=== PATIENT | female | born 1950 | race Hispanic/Latino ===

== ENCOUNTER 2018-02-09 08:11 | Emergency (ER) | payer OTHER, MEDICARE ==
[2018-02-09 08:30] LABS: BASOPHILS % (AUTO) 0.5 % (0.0-5.0); EOSINOPHILS % (AUTO) 5.2 % (0.0-8.0); HEMATOCRIT 37.6 % (36-48); LYMPHOCYTES % (AUTO) 37.9 % (21.0-51.0); MEAN CORPUSCULAR HEMOGLOBIN 29.5 pg (27.0-33.0); MEAN CORPUSCULAR HGB CONC 33.6 g/dL (32.0-36.0); MEAN CORPUSCULAR VOLUME 87.7 fL (79-99); MONOCYTES % (AUTO) 7.4 % (3.0-13.0); PLATELET COUNT (AUTO) 208 K/uL (130-400); RED BLOOD CELL COUNT(AUTO) 4.29 MIL/uL (4.00-5.50); RED CELL DISTRIBUTION WIDTH 13.6 % (11.0-15.5); WHITE BLOOD COUNT (AUTO) 6.4 K/uL (4.8-10.8)
[2018-02-09 08:40] LABS: CREATININE 0.7 mg/dL (0.5-1.5)
[2018-02-09 08:42] LABS: INR 0.97 (0.85-1.15); PARTIAL THROMBOPLASTIN TIME 25.7 SEC (26.3-35.5); PROTHROMBIN TIME 10.2 SEC (9.6-11.6)
[2018-02-09 08:46] LABS: ALBUMIN 3.5 g/dL (3.5-5.0); BILIRUBIN,TOTAL 0.4 mg/dL (0.2-1.0)
[2018-02-09 09:14] LABS: APPEARANCE,URINE Clear (CLEAR); BILIRUBIN,URINE Negative (NEGATIVE); COLOR,URINE Yellow (YELLOW); GLUCOSE, URINE (UA) Negative (NEGATIVE); KETONES,URINE Negative (NEGATIVE); LEUKOCYTE ESTERASE ,URINE Trace (NEGATIVE); NITRATE,URINE Negative (NEGATIVE); OCCULT BLOOD,URINE Negative (NEGATIVE); PH,URINE 5.5 (5.0-8.0); PROTEIN,URINE Negative (NEGATIVE); UROBILINOGEN,URINE 0.2 mg/dL (0.2-1.0)
[2018-02-09 09:22] LABS: AMPHET/METH SCREEN,URINE NEGATIVE (NEGATIVE); BARBITURATE SCREEN, URINE NEGATIVE (NEGATIVE); BENZODIAZEPINES SCREEN,URINE NEGATIVE (NEGATIVE); CANNABINOID SCREEN,URINE NEGATIVE (NEGATIVE); COCAINE SCREEN,URINE NEGATIVE (NEGATIVE); OPIATE SCREEN,URINE NEGATIVE (NEGATIVE); PHENCYCLIDINE SCREEN,URINE NEGATIVE (NEGATIVE)
[2018-02-09] MEDS ORDERED: ACETAMINOPHEN 325 MG TAB ONE (09:52)
[2018-02-09] MEDS ORDERED: MECLIZINE HCL 25 MG TABLET ONE (09:58)
[2018-02-09 10:07] LABS: BACTERIA,URINE Rare /HPF (None Seen); RBC,URINE None Seen /HPF (0-1); SQUAMOUS EPITHELIAL CELL,UR Rare /HPF (0-2); WBC,URINE 0-1 /HPF (0-1)
== END 2018-02-09 11:48 | disposition home or self-care (01) ==
LOC: EDH 08:11
DX: I10 Essential (primary) hypertension (principal); R51 Headache; R42 Dizziness and giddiness; R07.9 Chest pain, unspecified; E78.5 Hyperlipidemia, unspecified; F41.9 Anxiety disorder, unspecified
CPT/HCPCS: 36415; 70450; 71045; 80053; 80305; 81001; 82550; 84484 ×2; 85025; 85610; 85730; 93005 ×2; 99284; G0480

== ENCOUNTER 2019-12-01 16:58 | Inpatient (IN) | payer OTHER, MEDICARE ==
[~2019-12-01] VITALS: Ht 167.6 cm; Wt 89.4 kg
[2019-12-01] MEDS ORDERED: CLINDAMYCIN 600 MG/D5% WATER 50 ML IV ONE (18:11)
[2019-12-01] MEDS ORDERED: LEVOFLOXACIN 750 MG/D5W 150 ML 150 ML ONE (18:11)
[2019-12-01] MEDS ORDERED: SODIUM CHLORIDE 0.9% 1000ML 1,000 ML IV ONE (18:13)
[2019-12-01 18:44] LABS: BASOPHILS % (AUTO) 0.6 % (0.0-5.0); EOSINOPHILS % (AUTO) 1.3 % (0.0-8.0); HEMATOCRIT 29.1 % (36-48); LYMPHOCYTES % (AUTO) 18.9 % (21.0-51.0); MEAN CORPUSCULAR HGB CONC 29.9 g/dL (32.0-36.0); MEAN CORPUSCULAR VOLUME 83.6 fL (79-99); MONOCYTES % (AUTO) 7.5 % (3.0-13.0); NEUTROPHILS % (AUTO) 70.9 % (40.0-77.0); PLATELET COUNT (AUTO) 476 K/uL (130-400); RED BLOOD CELL COUNT(AUTO) 3.48 MIL/uL (4.00-5.50); RED CELL DISTRIBUTION WIDTH 18.7 % (11.0-15.5); WHITE BLOOD COUNT (AUTO) 10.7 K/uL (4.8-10.8)
[2019-12-01 18:59] LABS: CREATININE 0.7 mg/dL (0.5-1.5); POTASSIUM 4.1 mmol/L (3.5-5.1)
[2019-12-01] MEDS ORDERED: IOHEXOL-350 75 ML VIAL IV ONE (19:21)
[2019-12-01 19:50] LABS: ERYTHROCYTE SEDIMENTATION RATE 117 MM/HR (0-30)
[2019-12-01] MEDS ORDERED: MORPHINE SULFATE 2 MG/ML 1ML SYG IVP PRN (21:30)
[2019-12-01] MEDS ORDERED: ONDANSETRON HCL 4 MG/2 ML VIAL IVP PRN (21:30)
[2019-12-01] MEDS ORDERED: ACETAMINOPHEN 325 MG TAB PO PRN (21:30)
[2019-12-02 06:05] LABS: BASOPHILS % (AUTO) 0.6 % (0.0-5.0); EOSINOPHILS % (AUTO) 2.7 % (0.0-8.0); HEMATOCRIT 26.7 % (36-48); LYMPHOCYTES % (AUTO) 22.2 % (21.0-51.0); MEAN CORPUSCULAR HEMOGLOBIN 25.3 pg (27.0-33.0); MEAN CORPUSCULAR VOLUME 84.5 fL (79-99); NEUTROPHILS % (AUTO) 64.6 % (40.0-77.0); PLATELET COUNT (AUTO) 416 K/uL (130-400); RED BLOOD CELL COUNT(AUTO) 3.16 MIL/uL (4.00-5.50); RED CELL DISTRIBUTION WIDTH 18.7 % (11.0-15.5); WHITE BLOOD COUNT (AUTO) 8.4 K/uL (4.8-10.8)
[2019-12-02 06:35] LABS: CREATININE 0.7 mg/dL (0.5-1.5); MAGNESIUM 1.8 mg/dL (1.80-2.40)
[2019-12-02 08:45] VITALS: BP 157/90
[2019-12-02 11:51] VITALS: BP 129/98
[2019-12-02] MEDS ORDERED: GABA300S PO (13:09)
[2019-12-02] MEDS ORDERED: ESCI20TA36 PO (13:10)
[2019-12-02] MEDS ORDERED: TRAM50TA4 PO (13:12)
[2019-12-02] MEDS ORDERED: CYCL5TAB PO (13:14)
[2019-12-02] MEDS ORDERED: LISI40TA4 PO (13:15)
[2019-12-02] MEDS ORDERED: A20IH1 IH (13:17)
[2019-12-02] MEDS ORDERED: ERGO500014 PO (13:19)
[2019-12-02] MEDS ORDERED: APIX5TAB PO (13:21)
[2019-12-02] MEDS ORDERED: TRAMADOL HCL 50 MG TABLET PO PRN (13:30)
[2019-12-02] MEDS ORDERED: ALBUTEROL SULFATE 5 MG IH SCH (13:45)
--- NOTE | 2019-12-02 13:50 | NUR ---
MET WITH PATIENT AT BEDSIDE FOR DC PLANNING PATIENT LIVES ALONE, [facility] IN [place] AND ONE OF THEM WILL PROVIDE TRANSPORT HOME. NUMBERS ON CHART CHECKED, PATIENT DOES NOT HAVE HER PHONE WITH HER, AND WHEN ASKED IF NUMBERS ON FACE SHEET ARE CORRECT STATES CHAPMAN NOT KNOW. WILL FOLLOW UP STATES HOME IS SAFE AND ACCESISBLE, HAS SHOWER CHAIR AND ROLLING WALKER, USES A CANE OCCASIONALLY DAUGHTER ELIGIO "IS SET TO BECOME MY PROVIDER BUT I GOT SICK AND CAME IN HERE" FOLLOW UP WITH DR. JAMILA CHANDLER. PATIENT KELSEY BRODY TOLD THAT SHE WOULD BE STAYING AT LEAST OVERNIGHT; THOUGHT SHE WAS BEING DISCHARGED. Addendum: 12/02/19 at 1429 by PARAM SHABAZZ RN Amended: Links added.
[2019-12-02] MEDS: LISINOPRIL 40 MG TABLET PO SCH (14:09)
[2019-12-02] MEDS: GABAPENTIN 300 MG CAPSULE PO SCH ×2 (14:10→20:40)
[2019-12-02] MEDS: CITALOPRAM 20 MG TABLET PO SCH (14:11)
[2019-12-02] MEDS ORDERED: HONEY 1 APPL/ML TUBE TP ONE (15:24)
[2019-12-02 16:27] VITALS: BP 115/73
--- NOTE | 2019-12-02 17:50 | NUR ---
CONSENT discussed with pt ,denies questions
[2019-12-02 19:42] VITALS: BP 92/52
[2019-12-02] MEDS: APIXABAN 5 MG TABLET PO SCH (20:40)
[2019-12-02] MEDS ORDERED: VANCOMYCIN PROTOCOL PER PHARMACY IV SCH (20:45)
[2019-12-02] MEDS ORDERED: COMPOUND IV REFRIGERATED 1 EACH IVSOLN MISC PRN (21:15)
[2019-12-02] MEDS ORDERED: VANCOMYCIN 1.75 GM in SODIUM CHLORIDE 0.9% 250 ML IV ONE (21:15)
[2019-12-03 04:06] VITALS: BP 87/55
[2019-12-03 04:40] LABS: INR 1.11 (0.85-1.15); PARTIAL THROMBOPLASTIN TIME 25.1 SEC (26.3-35.5); PROTHROMBIN TIME 11.9 SEC (9.6-11.6)
[2019-12-03 08:19] VITALS: BP 114/66
[2019-12-03] MEDS: VANCOMYCIN 1GM+NS 250ML 250 ML IV SCH ×2 (08:38→19:48)
[2019-12-03] MEDS: LISINOPRIL 40 MG TABLET PO SCH (08:39)
[2019-12-03] MEDS: CITALOPRAM 20 MG TABLET PO SCH ×2 (09:00→14:59)
[2019-12-03] MEDS: GABAPENTIN 300 MG CAPSULE PO SCH ×3 (09:00→19:48)
[2019-12-03] MEDS: CYCLOBENZAPRINE HCL 10 MG TABLET PO SCH ×2 (09:00→14:58)
[2019-12-03] MEDS: APIXABAN 5 MG TABLET PO SCH ×2 (09:00→15:00)
[2019-12-03] MEDS ORDERED: ERGOCALCIFEROL (VITAMIN D2) 50,000 UNIT CAPSULE PO SCH (09:00)
--- NOTE | 2019-12-03 09:00 | NUR ---
DISCHARGE PLANNING WITH PATIENT AT BEDSIDE- PATIENT STATES LIVES ALONE- STATES HE PAWAN ARMENTA USED TO BE HER PROVIDER THAT BTHAT SHE SMOKED MJ SO SHE DOES NOT WANT HER OT COME AROUND. STATES HER DAUGHTER ANGELA IS GOGIN TO GET 3 RS A DAY AND THAT IS JUST ABOUT TO START, STATES THAT SHE HAS A ROLLING WALKER AT HOME AND HER PLACE IS SAFE AND ACCESSIBLE, STATES WAS AT A REHAB PLACE BUT DIDNT LIKE IT, JUST GOT HOME A FEW DAYS AGO OLD RECORDS REVIEWED- WAS DC TO [facility]. WILL FOLLOW UP WITH FAMILY , NO ANSWER TO ANGELA ANAYA NUMBER ON CHART Addendum: 12/04/19 at 1903 by PARAM SHABAZZ RN Amended: Links added.
[2019-12-03 11:48] VITALS: BP 107/66
[2019-12-03] MEDS: HONEY 1 APPL/ML TUBE TP SCH (12:29)
[2019-12-03 16:32] VITALS: BP 108/68
--- NOTE | 2019-12-03 17:00 | NUR ---
Dr Boyd here discussed plan of care with patient pt voices understanding
[2019-12-03 19:38] VITALS: BP 109/51
--- NOTE | 2019-12-03 20:00 | NUR ---
ASSESSMENT AND TEACHING PATIENT AWAKE, ALERT, OX3, NO SOB, NO C/O PAIN AT THIS TIME, TEACH PATIENT PLAN OF CARE , NPO POST MIDNIGHT FOR PLAN SURGERY IN THE AM, PAIN MANAGEMENT, EXPECTED OUTCOME, PATIENT VERBALIZES UNDERSTANDING VIA TEACH BACK
[2019-12-04] VITALS (26 sets, daily range): BP systolic 86–122; BP diastolic 37–83
[2019-12-04] MEDS ORDERED: SUCCINYLCHOLINE CHLORIDE 20 MG/ML 10 ML VIAL ONE (07:12)
[2019-12-04] MEDS ORDERED: DEXAMETHASONE SOD PHOSPHATE 10MG/ML 1ML VIAL ONE (07:12)
[2019-12-04] MEDS ORDERED: LIDOCAINE PF 2% 5ML ABBOJECT ONE (07:12)
[2019-12-04] MEDS ORDERED: PROPOFOL 10 MG/ML 20ML VIAL IV ONE (07:12)
[2019-12-04] MEDS ORDERED: ROCURONIUM 10MG/1ML SYR 10 MG/ML ML ONE (07:13)
[2019-12-04] MEDS ORDERED: GLYCOPYRROLATE 1 MG/5 ML SYRINGE ONE (07:13)
[2019-12-04] MEDS ORDERED: LACTATED RINGERS 1000ML 1,000 ML IV ONE (07:13)
[2019-12-04] MEDS ORDERED: ONDANSETRON HCL 4 MG/2 ML VIAL ONE (07:13)
[2019-12-04] MEDS ORDERED: NEOSTIGMINE 5MG/5ML SYR IV ONE (07:13)
[2019-12-04] MEDS ORDERED: MIDAZOLAM HCL 1 MG/ML 2ML VIAL ONE (07:13)
[2019-12-04] MEDS ORDERED: MEPERIDINE-PF 25 MG/ML SYG ONE (07:14)
[2019-12-04] MEDS ORDERED: FENTANYL CITRATE PF 50 MCG/1 ML 2ML VIAL ONE (07:14)
[2019-12-04] MEDS ORDERED: CEFAZOLIN SODIUM 1 GM VIAL ONE (07:25)
[2019-12-04] MEDS ORDERED: VANCOMYCIN HCL 1 GM VIAL ONE (07:26)
[2019-12-04] MEDS ORDERED: TOBRAMYCIN SULFATE 40MG/1ML VIAL ONE (07:26)
--- NOTE | 2019-12-04 07:30 | NUR ---
SX DENTURES GIVEN TO PRIMARY NURSE NOE BRAR
[2019-12-04] MEDS ORDERED: PHENYLEPHRINE HCL 10 MG/ML 1ML VIAL IV ONE (08:03)
[2019-12-04] MEDS ORDERED: BACITRACIN 28.4 GM OINT TP ONE (08:40)
[2019-12-04] MEDS: VANCOMYCIN 1GM+NS 250ML 250 ML IV SCH ×2 (09:09→19:57)
--- NOTE | 2019-12-04 09:30 | NUR ---
SPOKEK TO DTR SUE IN [place] [phone] FOR CONFIRMATION. ADVISED HER THAT PT APPEARED CONFUSED, ESPECIALLY WITH TIME LINE OF ILLNESS, REHAB ETC .. DTR STATES YES MOM CONFUSED AND FUNCTION HAS DECLINED I RECENT MONTHS. HOME ONLY 4 DAYS FROM [facility], 'DO NOT SEND HER TO [facility], HATES THAT PLACE. CAN GO TO OTHER REHBA WAS THERE 21 DAYS,WILL SEE WHAT INSURANCE WILL APPROVE AT DISCHARGE
[2019-12-04] MEDS: LISINOPRIL 40 MG TABLET PO SCH (11:05)
[2019-12-04] MEDS: GABAPENTIN 300 MG CAPSULE PO SCH ×3 (11:06→19:59)
[2019-12-04] MEDS: APIXABAN 5 MG TABLET PO SCH ×2 (11:06→19:58)
[2019-12-04] MEDS: HONEY 1 APPL/ML TUBE TP SCH (11:08)
[2019-12-04] MEDS ORDERED: PERMETHRIN LOTION 1% 59ML BOTTLE TP SCH (15:00)
--- NOTE | 2019-12-04 19:07 | NUR ---
ALESHAK TO DTR SUE IN HOUSE [phone] FOR CONFIRMATION. ADVISED HER THAT PT APPEARED CONFUSED, ESPECIALLY WITH TIME LINE OF ILLNESS, REHAB ETC .. DTR STATES YES MOM CONFUSED AND FUNCTION HAS DECLINED I RECENT MONTHS. HOME ONLY 4 DAYS FROM [facility], 'DO NOT SEND HER TO [facility], HATES THAT PLACE. CAN GO TO OTHER REHBA WAS THERE 21 DAYS,WILL SEE WHAT INSURANCE WILL APPROVE AT DISCHARGE ADVISED THAT I WOULD LET MD KNOW ROSANGELA TO FOLLOW UP Addendum: 12/04/19 at 1909 by PARAM SHABAZZ RN CM Amended: Links added. Addendum: 12/04/19 at 1910 by PARAM SHABAZZ RN CM THIS NOTE IS FROM 0900 12/03
[2019-12-05] VITALS (13 sets, daily range): BP systolic 102–143; BP diastolic 52–93
[2019-12-05 06:05] LABS: HEMATOCRIT 24.5 % (36-48); MEAN CORPUSCULAR HEMOGLOBIN 25.5 pg (27.0-33.0); MEAN CORPUSCULAR HGB CONC 30.6 g/dL (32.0-36.0); MEAN CORPUSCULAR VOLUME 83.3 fL (79-99); PLATELET COUNT (AUTO) 300 K/uL (130-400); RED BLOOD CELL COUNT(AUTO) 2.94 MIL/uL (4.00-5.50); RED CELL DISTRIBUTION WIDTH 18.6 % (11.0-15.5); WHITE BLOOD COUNT (AUTO) 7.1 K/uL (4.8-10.8)
[2019-12-05 06:34] LABS: ALBUMIN 1.9 g/dL (3.5-5.0); BILIRUBIN,TOTAL 0.3 mg/dL (0.2-1.0); POTASSIUM 4.7 mmol/L (3.5-5.1); TOTAL PROTEIN, SERUM 6.4 g/dL (6.0-8.3)
[2019-12-05 07:16] LABS: LYMPHOCYTES % (MANUAL) 12 % (22-44); MAN.DIFF COMMENT-IMPRESSION MANUAL DIFFERENTIAL; MONOCYTES % (MANUAL) 5 % (2-9); PLATELET MORPHOLOGY COMMENT ADEQUATE; SEGMENTED NEUTROPHILS % 83 % (40-70)
[2019-12-05] MEDS: VANCOMYCIN 1GM+NS 250ML 250 ML IV SCH ×2 (09:28→22:17)
[2019-12-05] MEDS: GABAPENTIN 300 MG CAPSULE PO SCH ×3 (09:28→22:16)
[2019-12-05] MEDS: CYCLOBENZAPRINE HCL 10 MG TABLET PO SCH (09:29)
[2019-12-05] MEDS: CITALOPRAM 20 MG TABLET PO SCH (09:29)
[2019-12-05] MEDS: APIXABAN 5 MG TABLET PO SCH ×2 (09:30→22:16)
[2019-12-05] MEDS: LISINOPRIL 40 MG TABLET PO SCH (09:31)
[2019-12-05] MEDS: HONEY 1 APPL/ML TUBE TP SCH (09:31)
--- NOTE | 2019-12-05 15:30 | NUR ---
UNWITNESSED FALL @1530: PT WAS FOUND ON FLOOR BY MANINDER FISCHER RN. HE THEN NOTIFIED ZONIA WREN AND MADI STARR. I RETURNED FROM LUNCH TO SEE PT ON THE FLOOR ON THE LEFT SIDE OF THE BED. WE (ZONIA WREN, MADI STARR, MADI CELIS AND MYSELF ISABELA HOPE) ASSISTED PT UP FROM FLOOR. PT WAS ASSESSED FOR INJURIES NO INJURIES NOTED, VITAL SIGNS STABLE. PT DENIED ANY PAIN AT THIS TIME . PT STATED SHE WAS FINE AND THAT SHE GOT UP BY HERSELF AND SLIPPED WHEN WALKING WITH HER WALKER. SHE ALSO STATED THAT SHE DID NOT HIT ANYTHING SHE FELL. CHARGE NURSE ZONIA MARTINEZ WAS NOTIFED @1535, DR ARBOLEDA-PRIMARY WAS NOTIFED @1541 NO ORDERS GIVEN.,CÉSAR ANNIKA SUP WAS NOTIFED BY ZONIA MARTINEZ @1713. ATTEMPTED TO CALL DAUGHTER @1610 NO ANSWER NOR VOICEMAIL SET-UP. PT WAS CONTINUED ON POST-FALL VITALS. PT WAS IN BED WITH SIDE RAILS X2 UP CALL LIGHT IN REACH AND BED ALARM ON. PT WAS INSTRUCTED BY MYSELF NOT TO GET UP WITHOUT CALLING FOR ASSISTANCE. PT VERBALIZED UNDERSTANDING.
--- NOTE | 2019-12-05 19:00 | NUR ---
PT WAS ASSISTED WITH SHOWER. PER MD ORDERS LICE TREATMENT APPLIED PT HAIR IS VERY MATTED. REPORTED TO CHARGE NURSE-ZONIA MARTINEZ AND PRIMARY DR ARBOLEDA. VIMAL ASSISTED ME WITH PT CARE. PT WAS SHOWERED THEN PLACED BACK IN BED. WOUND CARE TO RIGHT FOOT DONE. DRESSING CLEAN, DRY AND INTACT. PT DENIES PAIN AT THIS MOMENT. BED ALARM ON AND SIDE RAILS X2. CONTINUE TO MONITOR PT.
[2019-12-06] VITALS (7 sets, daily range): BP systolic 100–129; BP diastolic 50–80
[2019-12-06] MEDS: CYCLOBENZAPRINE HCL 10 MG TABLET PO SCH (10:21)
[2019-12-06] MEDS: CITALOPRAM 20 MG TABLET PO SCH (10:23)
[2019-12-06] MEDS: HONEY 1 APPL/ML TUBE TP SCH (10:24)
[2019-12-06] MEDS: APIXABAN 5 MG TABLET PO SCH ×2 (10:24→20:39)
[2019-12-06] MEDS: GABAPENTIN 300 MG CAPSULE PO SCH ×3 (10:24→20:38)
[2019-12-06] MEDS: LISINOPRIL 40 MG TABLET PO SCH (10:24)
[2019-12-06] MEDS: VANCOMYCIN 750MG + NS 250 ML IV SCH ×2 (18:01)
[2019-12-07 04:29] VITALS: BP 115/62
[2019-12-07] MEDS: VANCOMYCIN 750MG + NS 250 ML IV SCH ×4 (05:58→17:20)
[2019-12-07 08:16] VITALS: BP 125/66
[2019-12-07] MEDS: CITALOPRAM 20 MG TABLET PO SCH (08:55)
[2019-12-07] MEDS: LISINOPRIL 40 MG TABLET PO SCH (08:55)
[2019-12-07] MEDS: CYCLOBENZAPRINE HCL 10 MG TABLET PO SCH (08:55)
[2019-12-07] MEDS: APIXABAN 5 MG TABLET PO SCH ×2 (08:55→20:53)
[2019-12-07] MEDS: GABAPENTIN 300 MG CAPSULE PO SCH ×3 (08:56→20:53)
[2019-12-07] MEDS: HONEY 1 APPL/ML TUBE TP SCH (08:57)
[2019-12-07 11:35] VITALS: BP 108/50
--- NOTE | 2019-12-07 15:43 | NUR ---
RD NOTIFICATION Pt admitted with lumbar surgical wound infection. Pt tolerating Heart Healthy diet order with no report of GI distress. S/P I&D. Pt with Right foot ulcer and lumbar surgical wound. Obesity I status. Increased protein needs due to wound healing. Recommend continue Heart Healthy diet order Recommend Raman BID for wound healing support Recommend 500mg Vitamin C BID, 220mg Zinc QD for wound healing support RD to continue to monitor. Please notify as additional nutrition concerns arise. Thank you. Addendum: 12/07/19 at [address] RD Amended: Links added.
[2019-12-07 16:41] VITALS: BP 126/66
[2019-12-07 19:35] VITALS: BP 117/57
--- NOTE | 2019-12-07 20:46 | NUR ---
MEDS Due meds give,karen well.
[2019-12-08] VITALS: BP 127/64
[2019-12-08 04:00] VITALS: BP 145/67
--- NOTE | 2019-12-08 04:05 | NUR ---
ACTIVITY Pt ambulates to the bathroom with her walker,karen well.Instructed not to get up without calling for help.She verbalized understanding.
[2019-12-08] MEDS: VANCOMYCIN 750MG + NS 250 ML IV SCH ×2 (05:47)
[2019-12-08 08:19] VITALS: BP 151/69
[2019-12-08] MEDS: APIXABAN 5 MG TABLET PO SCH (08:41)
[2019-12-08] MEDS: CITALOPRAM 20 MG TABLET PO SCH (08:41)
[2019-12-08] MEDS: GABAPENTIN 300 MG CAPSULE PO SCH ×2 (08:41→13:58)
[2019-12-08] MEDS: CYCLOBENZAPRINE HCL 10 MG TABLET PO SCH (08:41)
[2019-12-08] MEDS: LISINOPRIL 40 MG TABLET PO SCH (08:42)
[2019-12-08 11:15] VITALS: BP 95/79
[2019-12-08] MEDS: HONEY 1 APPL/ML TUBE TP SCH (14:04)
[2019-12-08 16:04] VITALS: BP 125/68
--- NOTE | 2019-12-08 16:22 | NUR ---
NUTRITION EDUCATION - Wound Healing RD attempt to call Pt room due to isolation protocol, no answer. RD placed Wound healing nutrition education in Pt chart. Raman BID, Vitamin C, Zinc recommended for wound healing support.
--- NOTE | 2019-12-08 17:09 | NUR ---
discharge Patient discharged home. Given discharge instructions and prescription to take to pharmacy.Given follow-up appointments to see Dr Cardenas and Dr Boyd in their office. Instructed to keep the dressing clean and dry. Patient states that she has a follow up with her pcp already scheduled for tomorrow. Given an opportunity to ask questions, which were answered prior to signing discharge paperwork.
[2019-12-08] MEDS ORDERED: VANCOMYCIN 500MG+NS 100ML 100 ML IV SCH (18:00)
== END 2019-12-08 17:05 | disposition home or self-care (01) | DRG 605 ==
LOC: EDH 16:58 → EDHIP 21:15 → 3CH 12-02 08:52
PROVIDERS: ADMIT Internal Medicine Infectious Disease; ATTEND Internal Medicine Infectious Disease
PROC: 0JC70ZZ Extirpation of Matter from Back Subcutaneous Tissue and Fascia, Open Approach (ICD-10-PCS; principal; 2019-12-04 08:19)
DX: S20.459A Superficial foreign body of unspecified back wall of thorax, initial encounter (principal); T81.49XA Infection following a procedure, other surgical site, initial encounter; L97.819 Non-pressure chronic ulcer of other part of right lower leg with unspecified severity; L97.929 Non-pressure chronic ulcer of unspecified part of left lower leg with unspecified severity; T81.31XA Disruption of external operation (surgical) wound, not elsewhere classified, initial encounter; L97.519 Non-pressure chronic ulcer of other part of right foot with unspecified severity; B85.2 Pediculosis, unspecified; B95.62 Methicillin resistant Staphylococcus aureus infection as the cause of diseases classified elsewhere; G89.29 Other chronic pain; B85.0 Pediculosis due to Pediculus humanus capitis; E66.9 Obesity, unspecified; E78.5 Hyperlipidemia, unspecified; I10 Essential (primary) hypertension; R53.81 Other malaise; Y83.8 Other surgical procedures as the cause of abnormal reaction of the patient, or of later complication, without mention of misadventure at the time of the procedure; Z68.31 Body mass index [BMI] 31.0-31.9, adult; Z87.440 Personal history of urinary (tract) infections; Y92.89 Other specified places as the place of occurrence of the external cause; Y93.89 Activity, other specified; Y99.8 Other external cause status
CPT/HCPCS: 36415; 72132; 73020; 80048; 80053; 80202; 83735; 85025; 85610; 85651; 85730; 86140; 87040; 87070; 87076; 87077; 87186; 87205; 97039; A4606; G0378; J0330; J0690; J1100; J1956; J2001; J2175; J2250; J2370; J2405; J2704; J2710; J3010; J3260; J3370; J3490; J7030; J7050; J7120; Q9967

== ENCOUNTER 2020-02-01 10:49 | Inpatient (IN) | payer OTHER, MEDICARE ==
[~2020-02-01] VITALS: Ht 190.5 cm; Wt 83.1 kg
[~2020-02-01 10:49] MED LIST: A20IH1 IH; APIX5TAB PO; CYCL5TAB PO; ERGO500093 PO; ESCI20TA38 PO; GABA300S PO; LISI40TA9 PO; TRAM50TA4 PO
[2020-02-01] MEDS ORDERED: ONDANSETRON 4MG INJ ONE (11:42)
[2020-02-01] MEDS ORDERED: MORPHINE 4 MG SYG ONE (11:42)
[2020-02-01 11:44] LABS: BASOPHILS % (AUTO) 0.1 % (0.0-5.0); EOSINOPHILS % (AUTO) 0.1 % (0.0-8.0); HEMATOCRIT 27.2 % (36-48); LYMPHOCYTES % (AUTO) 5.7 % (21.0-51.0); MEAN CORPUSCULAR HEMOGLOBIN 24.9 pg (27.0-33.0); MEAN CORPUSCULAR HGB CONC 30.9 g/dL (32.0-36.0); MEAN CORPUSCULAR VOLUME 80.5 fL (79-99); MONOCYTES % (AUTO) 9.5 % (3.0-13.0); NEUTROPHILS % (AUTO) 81.9 % (40.0-77.0); PLATELET COUNT (AUTO) 291 K/uL (130-400); RED BLOOD CELL COUNT(AUTO) 3.38 MIL/uL (4.00-5.50); RED CELL DISTRIBUTION WIDTH 18.5 % (11.0-15.5); WHITE BLOOD COUNT (AUTO) 15.9 K/uL (4.8-10.8)
[2020-02-01 12:17] LABS: CREATININE 1.2 mg/dL (0.5-1.5); POTASSIUM 5.3 mmol/L (3.5-5.1)
[2020-02-01 12:25] LABS: BILIRUBIN,TOTAL 0.5 mg/dL (0.2-1.0); TOTAL PROTEIN, SERUM 7.2 g/dL (6.0-8.3)
[2020-02-01] MEDS ORDERED: VANCOMYCIN 1G/250ML KIT 250 ML IV ONE (12:36)
[2020-02-01] MEDS ORDERED: ZOSYN 3.375GM+NS 50ML 50 ML IV ONE ×2 (12:36→13:38)
[2020-02-01 13:00] LABS: ERYTHROCYTE SEDIMENTATION RATE 115 MM/HR (0-30)
[2020-02-01] MEDS ORDERED: GADODIAMIDE 10 MMOL/20 ML VIAL IV ONE (13:56)
[2020-02-01] MEDS: ENOXAPARIN SODIUM 30 MG/0.3 ML SQ SCH (14:29)
[2020-02-01] MEDS ORDERED: MORPHINE 2 MG SYG ONE (16:23)
[2020-02-01] MEDS ORDERED: ENOXAPARIN SODIUM 40 MG/0.4 ML SYRINGE SQ ONE (17:07)
[2020-02-01 18:15] VITALS: BP 124/56
[2020-02-01] MEDS: ACETAMINOPHEN 325 MG TAB PO PRN (18:25)
[2020-02-01] MEDS: MORPHINE 2 MG SYG IVP PRN (18:31)
[2020-02-01] MEDS: CEFEPIME HCL 2 GM VIAL IVP SCH (19:34)
[2020-02-01 20:09] VITALS: BP 108/57
[2020-02-01 23:30] VITALS: BP 91/46
[2020-02-02] VITALS (28 sets, daily range): BP systolic 90–155; BP diastolic 38–73
[2020-02-02] MEDS: ACETAMINOPHEN 325 MG TAB PO PRN ×2 (00:54→06:31)
[2020-02-02] MEDS: MORPHINE 2 MG SYG IVP PRN ×3 (00:57→20:16)
[2020-02-02] MEDS: CEFEPIME HCL 2 GM VIAL IVP SCH (05:20)
[2020-02-02 06:01] LABS: BASOPHILS % (AUTO) 0.2 % (0.0-5.0); EOSINOPHILS % (AUTO) 0.6 % (0.0-8.0); HEMATOCRIT 23.8 % (36-48); LYMPHOCYTES % (AUTO) 6.4 % (21.0-51.0); MEAN CORPUSCULAR HEMOGLOBIN 24.4 pg (27.0-33.0); MEAN CORPUSCULAR HGB CONC 30.3 g/dL (32.0-36.0); MEAN CORPUSCULAR VOLUME 80.7 fL (79-99); MONOCYTES % (AUTO) 8.4 % (3.0-13.0); NEUTROPHILS % (AUTO) 82.4 % (40.0-77.0); PLATELET COUNT (AUTO) 239 K/uL (130-400); RED BLOOD CELL COUNT(AUTO) 2.95 MIL/uL (4.00-5.50); RED CELL DISTRIBUTION WIDTH 18.7 % (11.0-15.5); WHITE BLOOD COUNT (AUTO) 14.8 K/uL (4.8-10.8)
[2020-02-02 06:14] LABS: ALBUMIN 1.4 g/dL (3.5-5.0); BILIRUBIN,TOTAL 0.4 mg/dL (0.2-1.0); CREATININE 1.1 mg/dL (0.5-1.5); MAGNESIUM 2.3 mg/dL (1.80-2.40); POTASSIUM 5.1 mmol/L (3.5-5.1)
[2020-02-02] MEDS ORDERED: KETOROLAC 30MG VIAL (30MG/ML) ONE (08:32)
[2020-02-02] MEDS ORDERED: KETOROLAC 30MG VIAL (30MG/ML) IV SCH (08:45)
[2020-02-02] MEDS: ENOXAPARIN SODIUM 30 MG/0.3 ML SQ SCH ×2 (09:00→15:29)
[2020-02-02] MEDS: VANCOMYCIN 1G/250ML KIT 250 ML IV SCH ×2 (11:55→15:29)
[2020-02-02] MEDS ORDERED: LACTATED RINGERS 1000ML 1,000 ML IV ONE (12:08)
[2020-02-02] MEDS ORDERED: LIDOCAINE PF 100MG/5ML (2%) SYRINGE 5ML ONE (12:28)
[2020-02-02] MEDS ORDERED: PROPOFOL 10 MG/ML 20ML VIAL IV ONE ×2 (12:28→13:20)
[2020-02-02] MEDS ORDERED: MIDAZOLAM HCL 1 MG/ML 2ML VIAL ONE (12:28)
[2020-02-02] MEDS ORDERED: ROCURONIUM 10MG/1ML SYR 10 MG/ML ML ONE (12:30)
[2020-02-02] MEDS ORDERED: VANCOMYCIN 1G VIAL ONE (12:51)
[2020-02-02] MEDS ORDERED: FENTANYL CITRATE PF 50 MCG/1 ML 2ML VIAL ONE (12:57)
[2020-02-02] MEDS ORDERED: CEFAZOLIN SODIUM 1 GM VIAL ONE (13:10)
[2020-02-02] MEDS ORDERED: ONDANSETRON 4MG INJ ONE (13:12)
[2020-02-02] MEDS ORDERED: NEOSTIGMINE 5MG/5ML SYR IV ONE (13:19)
[2020-02-02] MEDS ORDERED: GLYCOPYRROLATE 1 MG/5 ML SYRINGE ONE (13:19)
[2020-02-03] VITALS (7 sets, daily range): BP systolic 115–159; BP diastolic 61–74
[2020-02-03] MEDS: ACETAMINOPHEN 325 MG TAB PO PRN (00:33)
[2020-02-03] MEDS: MORPHINE 2 MG SYG IVP PRN ×4 (04:30→23:13)
[2020-02-03 07:25] LABS: HEMATOCRIT 23.3 % (36-48); MEAN CORPUSCULAR HEMOGLOBIN 24.3 pg (27.0-33.0); MEAN CORPUSCULAR HGB CONC 30.5 g/dL (32.0-36.0); MEAN CORPUSCULAR VOLUME 79.8 fL (79-99); RED BLOOD CELL COUNT(AUTO) 2.92 MIL/uL (4.00-5.50); RED CELL DISTRIBUTION WIDTH 18.5 % (11.0-15.5); WHITE BLOOD COUNT (AUTO) 15.1 K/uL (4.8-10.8)
[2020-02-03 07:45] LABS: ALBUMIN 1.4 g/dL (3.5-5.0); BILIRUBIN,TOTAL 0.2 mg/dL (0.2-1.0); MAGNESIUM 2.5 mg/dL (1.80-2.40); POTASSIUM 5.2 mmol/L (3.5-5.1); TOTAL PROTEIN, SERUM 6.3 g/dL (6.0-8.3)
[2020-02-03] MEDS: VANCOMYCIN 1G/250ML KIT 250 ML IV SCH ×2 (11:50→23:12)
[2020-02-03] MEDS: ENOXAPARIN SODIUM 30 MG/0.3 ML SQ SCH (11:53)
[2020-02-03] MEDS ORDERED: PHARMACY COMMUNICATION MISC SCH (12:00)
[2020-02-03] MEDS ORDERED: 0.9% NACL 250ML 250 ML IV ONE (17:27)
[2020-02-03] MEDS ORDERED: COMPOUND IV MISC 1 EACH IVSOLN MISC PRN (17:45)
[2020-02-03] MEDS: [UNRECOGNIZED DRUG - OTHER] IV SCH (20:42)
[2020-02-03] MEDS: GENTAMICIN SULFATE IV SCH (20:42)
[2020-02-04] MEDS: ACETAMINOPHEN 325 MG TAB PO PRN (02:29)
[2020-02-04 03:45] VITALS: BP 159/74
[2020-02-04] MEDS: MORPHINE 2 MG SYG IVP PRN (06:00)
[2020-02-04 06:19] LABS: HEMATOCRIT 26.7 % (36-48); MEAN CORPUSCULAR HGB CONC 31.8 g/dL (32.0-36.0); MEAN CORPUSCULAR VOLUME 78.5 fL (79-99); NUCLEATED RED BLOOD CELLS 0.1 % (0.0-0.19); PLATELET COUNT (AUTO) 279 K/uL (130-400); RED CELL DISTRIBUTION WIDTH 18.1 % (11.0-15.5)
[2020-02-04 06:44] LABS: ALBUMIN 1.6 g/dL (3.5-5.0); BILIRUBIN,TOTAL 0.5 mg/dL (0.2-1.0); CREATININE 0.9 mg/dL (0.5-1.5); POTASSIUM 4.4 mmol/L (3.5-5.1); TOTAL PROTEIN, SERUM 6.8 g/dL (6.0-8.3)
[2020-02-04 07:02] LABS: BAND NEUTROPHILS % (MANUAL) 2 % (0-2); LYMPHOCYTES % (MANUAL) 11 % (22-44); MAN.DIFF COMMENT-IMPRESSION MANUAL DIFFERENTIAL; MONOCYTES % (MANUAL) 6 % (2-9); SEGMENTED NEUTROPHILS % 81 % (40-70)
[2020-02-04 07:03] LABS: PLATELET MORPHOLOGY COMMENT ADEQUATE
[2020-02-04 07:30] VITALS: BP 129/56
[2020-02-04] MEDS ORDERED: HYDROMORPHONE 1 MG INJ ONE (09:42)
[2020-02-04] MEDS: ENOXAPARIN SODIUM 30 MG/0.3 ML SQ SCH (09:46)
[2020-02-04] MEDS: HYDROMORPHONE 1 MG INJ IVP PRN ×4 (09:53→22:20)
[2020-02-04 11:00] VITALS: BP 129/66
[2020-02-04] MEDS ORDERED: COMPOUND IV REFRIGERATED 1 EACH IVSOLN MISC PRN (12:15)
[2020-02-04] MEDS: VANCOMYCIN 1G/250ML KIT 250 ML IV SCH (13:02)
[2020-02-04] MEDS ORDERED: HYDROCODONE/ACETAMINOPHEN 10/325 MG TAB ONE (13:08)
[2020-02-04] MEDS ORDERED: HYDROCODONE/ACETAMINOPHEN 10/325 MG TAB PO PRN (13:15)
[2020-02-04] MEDS: HYDROCODONE/ACETAMINOPHEN 10/325 MG TAB PO SCH ×2 (13:34→21:34)
[2020-02-04] MEDS: [UNRECOGNIZED DRUG - OTHER] IV SCH (17:33)
[2020-02-04] MEDS: GENTAMICIN SULFATE IV SCH (17:33)
[2020-02-04 19:00] VITALS: BP 125/65
[2020-02-05] VITALS (7 sets, daily range): BP systolic 103–169; BP diastolic 50–77
[2020-02-05] MEDS: VANCOMYCIN 1G/250ML KIT 250 ML IV SCH ×3 (00:03→23:25)
[2020-02-05] MEDS: HYDROCODONE/ACETAMINOPHEN 10/325 MG TAB PO SCH ×4 (00:52→15:50)
[2020-02-05] MEDS ORDERED: MORPHINE 2 MG SYG ONE ×4 (01:45→19:53)
[2020-02-05] MEDS: MORPHINE 2 MG SYG IVP PRN ×2 (01:46→10:49)
[2020-02-05] MEDS: HYDROMORPHONE 1 MG INJ IVP PRN ×5 (02:36→18:27)
[2020-02-05] MEDS: ACETAMINOPHEN 325 MG TAB PO PRN (05:22)
[2020-02-05] MEDS: ONDANSETRON 4MG INJ IVP PRN (10:49)
[2020-02-05] MEDS: GENTAMICIN SULFATE IV SCH (17:48)
[2020-02-05] MEDS: [UNRECOGNIZED DRUG - OTHER] IV SCH (17:48)
[2020-02-05] MEDS ORDERED: KETOROLAC 30MG VIAL (30MG/ML) IV SCH (21:45)
[2020-02-05] MEDS ORDERED: KETOROLAC 30MG VIAL (30MG/ML) ONE (21:46)
[2020-02-06] MEDS: HYDROCODONE/ACETAMINOPHEN 10/325 MG TAB PO SCH ×5 (00:39→23:59)
[2020-02-06 04:06] LABS: HEMATOCRIT 25.4 % (36-48); MEAN CORPUSCULAR HEMOGLOBIN 25.2 pg (27.0-33.0); MEAN CORPUSCULAR HGB CONC 30.7 g/dL (32.0-36.0); MEAN CORPUSCULAR VOLUME 82.2 fL (79-99); RED BLOOD CELL COUNT(AUTO) 3.09 MIL/uL (4.00-5.50); RED CELL DISTRIBUTION WIDTH 18.2 % (11.0-15.5); WHITE BLOOD COUNT (AUTO) 17.1 K/uL (4.8-10.8)
[2020-02-06 04:10] VITALS: BP 103/50
[2020-02-06 04:17] LABS: CREATININE 0.9 mg/dL (0.5-1.5); MAGNESIUM 1.9 mg/dL (1.80-2.40); POTASSIUM 4.7 mmol/L (3.5-5.1)
[2020-02-06 08:00] VITALS: BP 127/88
[2020-02-06] MEDS ORDERED: BACLOFEN 10 MG TABLET ONE (08:18)
[2020-02-06] MEDS: BACLOFEN 10 MG TABLET PO SCH ×3 (09:00→19:43)
[2020-02-06] MEDS ORDERED: BACLOFEN 10 MG TABLET PO SCH (09:00)
[2020-02-06] MEDS: ENOXAPARIN SODIUM 30 MG/0.3 ML SQ SCH (10:12)
[2020-02-06 11:00] VITALS: BP 135/73
[2020-02-06] MEDS: VANCOMYCIN 1G/250ML KIT 250 ML IV SCH ×2 (11:43→23:58)
[2020-02-06] MEDS: HYDROMORPHONE 1 MG INJ IVP PRN ×3 (11:44→22:33)
[2020-02-06] MEDS ORDERED: MORPHINE 2 MG SYG ONE (12:42)
[2020-02-06] MEDS: MORPHINE 2 MG SYG IVP PRN (12:46)
[2020-02-06 16:00] VITALS: BP 172/59
[2020-02-06] MEDS: GENTAMICIN SULFATE IV SCH (17:01)
[2020-02-06] MEDS: [UNRECOGNIZED DRUG - OTHER] IV SCH (17:01)
[2020-02-06 20:00] VITALS: BP 153/73
[2020-02-07] VITALS: BP 113/41
[2020-02-07] MEDS: HYDROCODONE/ACETAMINOPHEN 10/325 MG TAB PO SCH ×4 (00:04→19:30)
[2020-02-07 04:00] VITALS: BP 139/63
[2020-02-07 04:56] LABS: HEMATOCRIT 27.9 % (36-48); MEAN CORPUSCULAR HEMOGLOBIN 25.4 pg (27.0-33.0); MEAN CORPUSCULAR HGB CONC 31.5 g/dL (32.0-36.0); MEAN CORPUSCULAR VOLUME 80.6 fL (79-99); RED BLOOD CELL COUNT(AUTO) 3.46 MIL/uL (4.00-5.50); RED CELL DISTRIBUTION WIDTH 18.1 % (11.0-15.5)
[2020-02-07 05:23] LABS: CREATININE 0.8 mg/dL (0.5-1.5); MAGNESIUM 1.7 mg/dL (1.80-2.40); POTASSIUM 4.7 mmol/L (3.5-5.1)
[2020-02-07 08:00] VITALS: BP 148/90
[2020-02-07] MEDS: HYDROMORPHONE 1 MG INJ IVP PRN (08:52)
[2020-02-07] MEDS: ENOXAPARIN SODIUM 30 MG/0.3 ML SQ SCH (09:00)
[2020-02-07] MEDS: BACLOFEN 10 MG TABLET PO SCH ×3 (09:00→23:09)
[2020-02-07 11:00] VITALS: BP 158/74
[2020-02-07] MEDS: VANCOMYCIN 1G/250ML KIT 250 ML IV SCH (12:04)
[2020-02-07] MEDS ORDERED: PHARMACY COMMUNICATION MISC SCH (12:30)
[2020-02-07] MEDS ORDERED: FLUCONAZOLE 200 MG/NS 100 ML 100 ML IV SCH (13:00)
[2020-02-07 16:00] VITALS: BP 158/74
[2020-02-07] MEDS: [UNRECOGNIZED DRUG - OTHER] IV SCH (17:33)
[2020-02-07] MEDS: GENTAMICIN SULFATE IV SCH (17:33)
[2020-02-07 20:00] VITALS: BP 141/62
[2020-02-08] VITALS: BP 149/67
[2020-02-08] MEDS: HYDROCODONE/ACETAMINOPHEN 10/325 MG TAB PO SCH ×4 (00:18→21:43)
[2020-02-08] MEDS: VANCOMYCIN 1G/250ML KIT 250 ML IV SCH ×2 (00:18→13:45)
[2020-02-08 04:00] VITALS: BP 146/72
[2020-02-08 05:25] LABS: HEMATOCRIT 30.8 % (36-48); MEAN CORPUSCULAR HEMOGLOBIN 25.2 pg (27.0-33.0); MEAN CORPUSCULAR HGB CONC 31.5 g/dL (32.0-36.0); RED BLOOD CELL COUNT(AUTO) 3.85 MIL/uL (4.00-5.50); RED CELL DISTRIBUTION WIDTH 18.4 % (11.0-15.5); WHITE BLOOD COUNT (AUTO) 13.3 K/uL (4.8-10.8)
[2020-02-08 05:37] LABS: CREATININE 0.9 mg/dL (0.5-1.5); MAGNESIUM 1.9 mg/dL (1.80-2.40); POTASSIUM 4.6 mmol/L (3.5-5.1)
[2020-02-08 08:34] VITALS: BP 148/93
[2020-02-08] MEDS: BACLOFEN 10 MG TABLET PO SCH (09:20)
[2020-02-08 17:20] VITALS: BP 140/90
[2020-02-08] MEDS: ENOXAPARIN SODIUM 30 MG/0.3 ML SQ SCH (18:12)
[2020-02-08] MEDS: [UNRECOGNIZED DRUG - OTHER] IV SCH (18:38)
[2020-02-08] MEDS: GENTAMICIN SULFATE IV SCH (18:38)
[2020-02-08 20:20] VITALS: BP 127/93
[2020-02-09] VITALS (7 sets, daily range): BP systolic 126–160; BP diastolic 72–89
[2020-02-09] MEDS: VANCOMYCIN 1G/250ML KIT 250 ML IV SCH ×2 (00:30→12:00)
[2020-02-09] MEDS: HYDROMORPHONE 1 MG INJ IVP PRN ×2 (00:48→09:11)
[2020-02-09] MEDS: HYDROCODONE/ACETAMINOPHEN 10/325 MG TAB PO SCH ×3 (01:30→13:31)
[2020-02-09 04:08] LABS: HEMATOCRIT 38.3 % (36-48); MEAN CORPUSCULAR HEMOGLOBIN 25.1 pg (27.0-33.0); MEAN CORPUSCULAR HGB CONC 30.8 g/dL (32.0-36.0); MEAN CORPUSCULAR VOLUME 81.3 fL (79-99); RED BLOOD CELL COUNT(AUTO) 4.71 MIL/uL (4.00-5.50); RED CELL DISTRIBUTION WIDTH 18.4 % (11.0-15.5); WHITE BLOOD COUNT (AUTO) 14.6 K/uL (4.8-10.8)
[2020-02-09 04:27] LABS: CREATININE 1.2 mg/dL (0.5-1.5); POTASSIUM 5.2 mmol/L (3.5-5.1)
[2020-02-09] MEDS: ENOXAPARIN SODIUM 30 MG/0.3 ML SQ SCH (09:11)
[2020-02-09] MEDS: [UNRECOGNIZED DRUG - OTHER] IV SCH (18:31)
[2020-02-09] MEDS: GENTAMICIN SULFATE IV SCH (18:31)
[2020-02-10] VITALS (7 sets, daily range): BP systolic 86–138; BP diastolic 48–72
[2020-02-10] MEDS: VANCOMYCIN 1G/250ML KIT 250 ML IV SCH
[2020-02-10] MEDS: ENOXAPARIN SODIUM 30 MG/0.3 ML SQ SCH (09:45)
[2020-02-10] MEDS ORDERED: GADODIAMIDE 10 MMOL/20 ML VIAL IV ONE (13:42)
[2020-02-10] MEDS: HYDROMORPHONE 2 MG VIAL (2MG/ML) IVP PRN (14:07)
[2020-02-10] MEDS ORDERED: LACTATED RINGERS 1000ML IV ONE (16:30)
[2020-02-10] MEDS: [UNRECOGNIZED DRUG - OTHER] IV SCH (17:40)
[2020-02-10] MEDS: GENTAMICIN SULFATE IV SCH (17:40)
[2020-02-10] MEDS: HYDROCODONE/ACETAMINOPHEN 10/325 MG TAB PO PRN (21:54)
[2020-02-11] VITALS (9 sets, daily range): BP systolic 91–126; BP diastolic 39–92
[2020-02-11] MEDS: ENOXAPARIN SODIUM 30 MG/0.3 ML SQ SCH (09:25)
[2020-02-11] MEDS: VANCOMYCIN 1G/250ML KIT 250 ML IV SCH (12:00)
[2020-02-11 12:23] LABS: ABG BASE EXCESS -6.8 mmol/L (-2.0-3.0); ABG HCO3 16.9 mmol/L (21.0-28.0); ABG OXYGEN SATURATION 96.9 % (95.0-99.0); ABG PCO2 28 mmHg (32-45)
[2020-02-11] MEDS ORDERED: SODIUM BICARB 50MEQ 50ML VIAL 100 ML ONE (12:25)
[2020-02-11] MEDS ORDERED: SODIUM BICARB 50MEQ 50ML VIAL 50 ML ONE (12:27)
[2020-02-11] MEDS ORDERED: SODIUM BICARBONATE 650 MG TAB ONE (12:29)
[2020-02-11] MEDS ORDERED: MIDODRINE HCL 5 MG TABLET PO SCH (12:30)
[2020-02-11 12:41] LABS: HEMATOCRIT 33.5 % (36-48); MEAN CORPUSCULAR HEMOGLOBIN 25.1 pg (27.0-33.0); MEAN CORPUSCULAR HGB CONC 30.7 g/dL (32.0-36.0); MEAN CORPUSCULAR VOLUME 81.7 fL (79-99); PLATELET COUNT (AUTO) 462 K/uL (130-400); RED CELL DISTRIBUTION WIDTH 18.7 % (11.0-15.5); WHITE BLOOD COUNT (AUTO) 14.3 K/uL (4.8-10.8)
[2020-02-11] MEDS ORDERED: SODIUM BICARBONATE 650 MG TAB PO SCH (12:51)
[2020-02-11 12:58] LABS: INR 1.73 (0.85-1.15); PROTHROMBIN TIME 17.6 SEC (9.6-11.6)
[2020-02-11 13:00] LABS: PARTIAL THROMBOPLASTIN TIME 36.3 SEC (26.3-35.5)
[2020-02-11 13:39] LABS: D-DIMER > 10000 ng/mL (0-500)
[2020-02-11] MEDS ORDERED: 0.9%NACL 1000ML 1,000 ML IV ONE (13:42)
[2020-02-11] MEDS ORDERED: 0.9% NACL 500ML IV.SOLN 1,000 ML IV SCH (13:45)
[2020-02-11] MEDS ORDERED: NOREPINEPHRIN 4MG/NS 250ML 250 ML IV SCH (14:00)
[2020-02-11] MEDS: 0.9%NACL 1000ML 1,000 ML IV SCH (15:10)
[2020-02-11 16:43] LABS: CREATININE 4.1 mg/dL (0.5-1.5); POTASSIUM 5.4 mmol/L (3.5-5.1)
[2020-02-11] MEDS: GENTAMICIN SULFATE IV SCH (18:16)
[2020-02-11] MEDS: [UNRECOGNIZED DRUG - OTHER] IV SCH (18:16)
[2020-02-11] MEDS: SODIUM BICARBONATE 650 MG TAB PO SCH (20:24)
[2020-02-11] MEDS: MIDODRINE HCL 5 MG TABLET PO SCH (20:24)
[2020-02-11] MEDS: ACETAMINOPHEN 325 MG TAB PO PRN (20:27)
[2020-02-12] VITALS (23 sets, daily range): BP systolic 86–140; BP diastolic 42–68
[2020-02-12] MEDS: VANCOMYCIN 1G/250ML KIT 250 ML IV SCH
[2020-02-12] MEDS: 0.9%NACL 1000ML 1,000 ML IV SCH ×2 (01:53→09:53)
[2020-02-12] MEDS: ACETAMINOPHEN 325 MG TAB PO PRN (05:02)
[2020-02-12 05:53] LABS: BASOPHILS % (AUTO) 0.3 % (0.0-5.0); EOSINOPHILS % (AUTO) 0.6 % (0.0-8.0); HEMATOCRIT 26.2 % (36-48); LYMPHOCYTES % (AUTO) 13.5 % (21.0-51.0); MEAN CORPUSCULAR HEMOGLOBIN 25.2 pg (27.0-33.0); MEAN CORPUSCULAR HGB CONC 31.3 g/dL (32.0-36.0); MEAN CORPUSCULAR VOLUME 80.6 fL (79-99); MONOCYTES % (AUTO) 6.2 % (3.0-13.0); PLATELET COUNT (AUTO) 348 K/uL (130-400); RED BLOOD CELL COUNT(AUTO) 3.25 MIL/uL (4.00-5.50); RED CELL DISTRIBUTION WIDTH 18.8 % (11.0-15.5); WHITE BLOOD COUNT (AUTO) 13.9 K/uL (4.8-10.8)
[2020-02-12 06:19] LABS: ALBUMIN 1.5 g/dL (3.5-5.0); BILIRUBIN,TOTAL 0.5 mg/dL (0.2-1.0); CREATININE 4.1 mg/dL (0.5-1.5); POTASSIUM 4.8 mmol/L (3.5-5.1); TOTAL PROTEIN, SERUM 5.9 g/dL (6.0-8.3)
[2020-02-12] MEDS: METOCLOPRAMIDE 10 MG/2 ML VIAL IVP SCH ×3 (07:30→17:00)
[2020-02-12] MEDS: ENOXAPARIN SODIUM 100 MG/1 ML SQ SCH (09:51)
[2020-02-12] MEDS: SODIUM BICARBONATE 650 MG TAB PO SCH ×3 (09:52→20:41)
[2020-02-12] MEDS: MIDODRINE HCL 5 MG TABLET PO SCH ×3 (09:52→20:42)
[2020-02-12] MEDS ORDERED: COMPOUND IV MISC 1 EACH IVSOLN MISC PRN (11:15)
[2020-02-12] MEDS ORDERED: PHARMACY COMMUNICATION MISC SCH ×2 (11:45→12:15)
[2020-02-12] MEDS: HYDROCODONE/ACETAMINOPHEN 10/325 MG TAB PO PRN (12:18)
[2020-02-12] MEDS ORDERED: DAPTOMYCIN IV SCH (13:45)
[2020-02-12] MEDS ORDERED: [UNRECOGNIZED DRUG - OTHER] IV SCH (13:45)
[2020-02-12] MEDS: HYDROMORPHONE 2 MG VIAL (2MG/ML) IVP PRN (18:33)
[2020-02-13] VITALS (24 sets, daily range): BP systolic 93–125; BP diastolic 40–67
[2020-02-13] MEDS: 0.9%NACL 1000ML 1,000 ML IV SCH ×3 (03:44→15:58)
[2020-02-13 04:59] LABS: BASOPHILS % (AUTO) 0.4 % (0.0-5.0); EOSINOPHILS % (AUTO) 0.3 % (0.0-8.0); HEMATOCRIT 22.5 % (36-48); LYMPHOCYTES % (AUTO) 11.3 % (21.0-51.0); MEAN CORPUSCULAR HEMOGLOBIN 25.5 pg (27.0-33.0); MEAN CORPUSCULAR HGB CONC 31.1 g/dL (32.0-36.0); MEAN CORPUSCULAR VOLUME 82.1 fL (79-99); MONOCYTES % (AUTO) 7.2 % (3.0-13.0); NEUTROPHILS % (AUTO) 79.8 % (40.0-77.0); PLATELET COUNT (AUTO) 374 K/uL (130-400); RED BLOOD CELL COUNT(AUTO) 2.74 MIL/uL (4.00-5.50); RED CELL DISTRIBUTION WIDTH 18.9 % (11.0-15.5)
[2020-02-13 05:16] LABS: CREATININE 3.5 mg/dL (0.5-1.5); PHOSPHORUS 5.5 mg/dL (2.5-4.9); POTASSIUM 4.6 mmol/L (3.5-5.1)
[2020-02-13] MEDS ORDERED: HYDROMORPHONE 1 MG INJ ONE (06:11)
[2020-02-13] MEDS: METOCLOPRAMIDE 10 MG/2 ML VIAL IVP SCH ×2 (07:30→11:30)
[2020-02-13] MEDS: ENOXAPARIN SODIUM 100 MG/1 ML SQ SCH (09:00)
[2020-02-13] MEDS: SODIUM BICARBONATE 650 MG TAB PO SCH ×3 (10:06→21:22)
[2020-02-13] MEDS: MIDODRINE HCL 5 MG TABLET PO SCH ×3 (10:06→21:22)
[2020-02-13] MEDS: IRON SUCROSE COMPLEX 100 MG in 0.9%NACL 50ML 50 ML IV SCH (10:06)
[2020-02-13] MEDS: HYDROMORPHONE 2 MG VIAL (2MG/ML) IVP PRN (12:31)
[2020-02-13] MEDS ORDERED: PANTOPRAZOLE 40 MG/VIAL IVP SCH (22:15)
[2020-02-13 22:38] LABS: HEMATOCRIT 24.2 % (36-48)
[2020-02-14] VITALS (24 sets, daily range): BP systolic 95–135; BP diastolic 40–67
[2020-02-14] MEDS: 0.9%NACL 1000ML 1,000 ML IV SCH ×3 (02:11→21:45)
[2020-02-14 07:26] LABS: BASOPHILS % (AUTO) 0.1 % (0.0-5.0); EOSINOPHILS % (AUTO) 0.4 % (0.0-8.0); HEMATOCRIT 21.9 % (36-48); LYMPHOCYTES % (AUTO) 11.1 % (21.0-51.0); MEAN CORPUSCULAR HGB CONC 30.1 g/dL (32.0-36.0); MONOCYTES % (AUTO) 6.6 % (3.0-13.0); NEUTROPHILS % (AUTO) 81.1 % (40.0-77.0); PLATELET COUNT (AUTO) 343 K/uL (130-400); RED BLOOD CELL COUNT(AUTO) 2.64 MIL/uL (4.00-5.50); RED CELL DISTRIBUTION WIDTH 18.7 % (11.0-15.5); WHITE BLOOD COUNT (AUTO) 9.7 K/uL (4.8-10.8)
[2020-02-14 08:04] LABS: CREATININE 3.2 mg/dL (0.5-1.5); MAGNESIUM 1.9 mg/dL (1.80-2.40); POTASSIUM 4.3 mmol/L (3.5-5.1)
[2020-02-14] MEDS: SODIUM BICARBONATE 650 MG TAB PO SCH ×3 (08:15→21:43)
[2020-02-14] MEDS: PANTOPRAZOLE 40 MG/VIAL IVP SCH ×2 (08:15→21:43)
[2020-02-14] MEDS: MIDODRINE HCL 5 MG TABLET PO SCH ×3 (08:15→21:43)
[2020-02-14] MEDS: HYDROCODONE/ACETAMINOPHEN 10/325 MG TAB PO PRN ×3 (08:27→21:44)
[2020-02-14 10:12] LABS: % IRON SATURATION 16.1 % (22-44); FERRITIN 450 ng/mL (15-150); IRON, SERUM < 5 mcg/dL (50-170); TOTAL IRON BINDING CAPACITY 31 mcg/dL (250-450)
[2020-02-14] MEDS: IRON SUCROSE COMPLEX 100 MG in 0.9%NACL 50ML 50 ML IV SCH (10:18)
[2020-02-14] MEDS ORDERED: IRON SUCROSE COMPLEX 100 MG in 0.9%NACL 50ML 50 ML IV SCH (11:51)
[2020-02-14 12:47] LABS: HEMATOCRIT 21.7 % (36-48)
[2020-02-14] MEDS: DAPTOMYCIN IV SCH (14:08)
[2020-02-14] MEDS: [UNRECOGNIZED DRUG - OTHER] IV SCH (14:08)
[2020-02-14 19:51] LABS: HEMATOCRIT 24.8 % (36-48)
[2020-02-15] VITALS (10 sets, daily range): BP systolic 100–150; BP diastolic 50–86
[2020-02-15 00:40] LABS: HEMATOCRIT 24.1 % (36-48)
[2020-02-15] MEDS: 0.9%NACL 1000ML 1,000 ML IV SCH ×2 (01:11→18:26)
[2020-02-15 03:57] LABS: BASOPHILS % (AUTO) 0.2 % (0.0-5.0); EOSINOPHILS % (AUTO) 0.7 % (0.0-8.0); HEMATOCRIT 24.8 % (36-48); LYMPHOCYTES % (AUTO) 10.5 % (21.0-51.0); MEAN CORPUSCULAR HEMOGLOBIN 25.4 pg (27.0-33.0); MEAN CORPUSCULAR VOLUME 81.8 fL (79-99); MONOCYTES % (AUTO) 7.6 % (3.0-13.0); NEUTROPHILS % (AUTO) 80.4 % (40.0-77.0); PLATELET COUNT (AUTO) 311 K/uL (130-400); RED BLOOD CELL COUNT(AUTO) 3.03 MIL/uL (4.00-5.50); RED CELL DISTRIBUTION WIDTH 18.7 % (11.0-15.5); WHITE BLOOD COUNT (AUTO) 8.7 K/uL (4.8-10.8)
[2020-02-15 04:09] LABS: CREATININE 3.6 mg/dL (0.5-1.5); POTASSIUM 4.1 mmol/L (3.5-5.1)
[2020-02-15] MEDS: MIDODRINE HCL 5 MG TABLET PO SCH ×3 (09:00→20:07)
[2020-02-15] MEDS: SODIUM BICARBONATE 650 MG TAB PO SCH ×3 (09:10→20:07)
[2020-02-15] MEDS: HYDROCODONE/ACETAMINOPHEN 10/325 MG TAB PO PRN (09:11)
[2020-02-15] MEDS: PANTOPRAZOLE 40 MG/VIAL IVP SCH ×2 (09:50→22:58)
[2020-02-15] MEDS: IRON SUCROSE COMPLEX 100 MG in 0.9%NACL 50ML 50 ML IV SCH (10:03)
[2020-02-15] MEDS: HYDROMORPHONE 1 MG INJ IVP PRN ×3 (12:05→20:06)
[2020-02-15] MEDS ORDERED: NOREPINEPHRIN 4MG/NS 250ML 250 ML IV SCH (13:30)
[2020-02-16] VITALS (22 sets, daily range): BP systolic 137–166; BP diastolic 68–92
[2020-02-16] MEDS: HYDROMORPHONE 1 MG INJ IVP PRN ×3 (01:19→15:38)
[2020-02-16 06:02] LABS: BASOPHILS % (AUTO) 0.3 % (0.0-5.0); EOSINOPHILS % (AUTO) 1.1 % (0.0-8.0); HEMATOCRIT 25.8 % (36-48); LYMPHOCYTES % (AUTO) 9.5 % (21.0-51.0); MEAN CORPUSCULAR HEMOGLOBIN 25.6 pg (27.0-33.0); MEAN CORPUSCULAR HGB CONC 30.2 g/dL (32.0-36.0); MEAN CORPUSCULAR VOLUME 84.6 fL (79-99); MONOCYTES % (AUTO) 8.4 % (3.0-13.0); NEUTROPHILS % (AUTO) 80.1 % (40.0-77.0); PLATELET COUNT (AUTO) 263 K/uL (130-400); RED BLOOD CELL COUNT(AUTO) 3.05 MIL/uL (4.00-5.50); RED CELL DISTRIBUTION WIDTH 18.7 % (11.0-15.5); WHITE BLOOD COUNT (AUTO) 9.7 K/uL (4.8-10.8)
[2020-02-16 06:43] LABS: ALBUMIN 1.4 g/dL (3.5-5.0); BILIRUBIN,TOTAL 0.4 mg/dL (0.2-1.0); CREATININE 2.8 mg/dL (0.5-1.5); MAGNESIUM 1.6 mg/dL (1.80-2.40); POTASSIUM 4.2 mmol/L (3.5-5.1); TOTAL PROTEIN, SERUM 6.2 g/dL (6.0-8.3)
[2020-02-16 06:47] LABS: B-TYPE NATRIURETIC PEPTIDE 1060 pg/mL (0-100)
[2020-02-16] MEDS: SODIUM BICARBONATE 650 MG TAB PO SCH ×3 (08:42→21:07)
[2020-02-16] MEDS: MIDODRINE HCL 5 MG TABLET PO SCH ×3 (08:42→21:06)
[2020-02-16] MEDS: IRON SUCROSE COMPLEX 100 MG in 0.9%NACL 50ML 50 ML IV SCH ×2 (09:00→14:58)
[2020-02-16] MEDS ORDERED: MIDAZOLAM HCL 1 MG/ML 2ML VIAL ONE (09:15)
[2020-02-16] MEDS ORDERED: IODIXANOL 320 MG/ML 100 ML VIAL ONE (09:15)
[2020-02-16] MEDS ORDERED: FENTANYL CITRATE PF 50 MCG/1 ML 2ML VIAL ONE (09:16)
[2020-02-16 09:50] LABS: INR 1.24 (0.85-1.15)
[2020-02-16 09:51] LABS: PARTIAL THROMBOPLASTIN TIME 28.4 SEC (26.3-35.5)
[2020-02-16] MEDS ORDERED: LIDOCAINE HCL 400MG/20ML VIAL ONE (09:58)
[2020-02-16] MEDS ORDERED: PROPOFOL 10 MG/ML 20ML VIAL IV ONE (09:58)
[2020-02-16] MEDS: PANTOPRAZOLE 40 MG/VIAL IVP SCH ×2 (11:27→21:06)
[2020-02-16] MEDS ORDERED: LIDOCAINE HCL 1% MDV 50ML VIAL ONE (11:49)
[2020-02-16] MEDS: [UNRECOGNIZED DRUG - OTHER] IV SCH ×2 (13:00→14:57)
[2020-02-16] MEDS: DAPTOMYCIN IV SCH ×2 (13:00→14:57)
[2020-02-16] MEDS ORDERED: LACTULOSE 20 GM/30 ML UDCUP ONE (19:35)
[2020-02-16] MEDS ORDERED: PEG 3350/NA SULF,BICARB,CL/KCL 4000 ML SOLN ONE (19:35)
[2020-02-17] VITALS (17 sets, daily range): BP systolic 151–180; BP diastolic 81–98
[2020-02-17] MEDS: HYDROMORPHONE 1 MG INJ IVP PRN ×6 (00:41→22:25)
[2020-02-17] MEDS: SODIUM BICARBONATE 650 MG TAB PO SCH ×3 (09:00→21:35)
[2020-02-17] MEDS: PANTOPRAZOLE 40 MG/VIAL IVP SCH ×2 (09:17→21:35)
[2020-02-17] MEDS ORDERED: PROPOFOL 10 MG/ML 20ML VIAL IV ONE (10:21)
[2020-02-17] MEDS ORDERED: LIDOCAINE HCL 1% 20 ML VIAL ONE (10:23)
[2020-02-17] MEDS ORDERED: METOCLOPRAMIDE 10 MG/2 ML VIAL ONE (10:48)
[2020-02-17] MEDS: ONDANSETRON 4MG INJ IVP PRN (10:58)
[2020-02-17] MEDS ORDERED: LACTULOSE 20 GM/30 ML UDCUP PO SCH ×3 (12:30→15:00)
[2020-02-17] MEDS: MIDODRINE HCL 5 MG TABLET PO SCH ×2 (14:00→21:00)
[2020-02-17] MEDS: IRON SUCROSE COMPLEX 100 MG in 0.9%NACL 50ML 50 ML IV SCH (14:24)
[2020-02-17] MEDS ORDERED: PEG 3350/NA SULF,BICARB,CL/KCL 4000 ML SOLN PO SCH (16:00)
[2020-02-17] MEDS ORDERED: BISACODYL 5 MG TABLET.DR PO SCH (18:00)
[2020-02-17] MEDS: ACETAMINOPHEN 325 MG TAB PO PRN (21:46)
[2020-02-18] VITALS (7 sets, daily range): BP systolic 102–147; BP diastolic 57–72
[2020-02-18 04:04] LABS: HEMATOCRIT 27.5 % (36-48); MEAN CORPUSCULAR HEMOGLOBIN 25.6 pg (27.0-33.0); MEAN CORPUSCULAR HGB CONC 30.9 g/dL (32.0-36.0); MEAN CORPUSCULAR VOLUME 82.8 fL (79-99); PLATELET COUNT (AUTO) 230 K/uL (130-400); RED BLOOD CELL COUNT(AUTO) 3.32 MIL/uL (4.00-5.50); RED CELL DISTRIBUTION WIDTH 18.6 % (11.0-15.5); WHITE BLOOD COUNT (AUTO) 9.1 K/uL (4.8-10.8)
[2020-02-18] MEDS ORDERED: DILTIAZEM 125 MG/25 ML INJ IV ONE (04:14)
[2020-02-18] MEDS ORDERED: 0.9%NACL 100ML 100 ML IV ONE (04:15)
[2020-02-18] MEDS ORDERED: DILTIAZEM 25MG INJ IVP PRN (04:15)
[2020-02-18] MEDS ORDERED: DILTIAZEM 125 MG/25 ML INJ 125 MG in 0.9%NACL 100ML 100 ML IV PRN (04:15)
[2020-02-18 04:16] LABS: CREATININE 2.6 mg/dL (0.5-1.5); POTASSIUM 3.1 mmol/L (3.5-5.1)
[2020-02-18 04:31] LABS: LYMPHOCYTES % (MANUAL) 11 % (22-44); MAN.DIFF COMMENT-IMPRESSION MANUAL DIFFERENTIAL; MONOCYTES % (MANUAL) 3 % (2-9); SEGMENTED NEUTROPHILS % 86 % (40-70)
[2020-02-18] MEDS ORDERED: METOPROLOL TARTRATE 1 MG/ML 5ML VIAL IV ONE (06:10)
[2020-02-18] MEDS: METOPROLOL TARTRATE 1 MG/ML 5ML VIAL IV PRN ×3 (06:30→06:55)
[2020-02-18] MEDS ORDERED: AMIODARONE 150MG VIAL 150 MG in DEXTROSE 5%-WATER 100 ML IV SCH (08:15)
[2020-02-18] MEDS ORDERED: AMIODARONE 900MG VIAL 450 MG in DEXTROSE 5%-WATER 250 ML IV SCH (08:15)
[2020-02-18] MEDS ORDERED: AMIODARONE 900MG VIAL 360 MG in DEXTROSE 5%-WATER 200 ML IV SCH (08:15)
[2020-02-18] MEDS ORDERED: POTASSIUM CHLORIDE 20MEQ/100ML 100 ML IV PRN (08:15)
[2020-02-18] MEDS ORDERED: LIDOCAINE HCL-MPF 1% 2ML VIAL IV PRN (08:15)
[2020-02-18] MEDS: DILTIAZEM 50MG VIAL IV SCH (08:54)
[2020-02-18] MEDS: FUROSEMIDE 20MG VIAL IV SCH ×2 (08:54→21:35)
[2020-02-18] MEDS: KCL 20 MEQ ERTAB PO PRN (08:55)
[2020-02-18] MEDS: PANTOPRAZOLE 40 MG/VIAL IVP SCH ×2 (08:55→21:35)
[2020-02-18] MEDS: SODIUM BICARBONATE 650 MG TAB PO SCH ×3 (08:55→21:35)
[2020-02-18] MEDS: MAGNESIUM 2GM PREMIX 50ML 50 ML IV SCH (11:19)
[2020-02-18] MEDS: HYDROMORPHONE 1 MG INJ IVP PRN (15:07)
[2020-02-18] MEDS: IRON SUCROSE COMPLEX 100 MG in 0.9%NACL 50ML 50 ML IV SCH (15:08)
[2020-02-18] MEDS: POTASSIUM CHLORIDE 20MEQ/100ML 100 ML IV PRN (15:20)
[2020-02-18] MEDS: DAPTOMYCIN IV SCH (17:44)
[2020-02-18] MEDS: [UNRECOGNIZED DRUG - OTHER] IV SCH (17:44)
[2020-02-19 00:36] VITALS: BP 137/60
[2020-02-19 04:01] LABS: BASOPHILS % (AUTO) 0.3 % (0.0-5.0); EOSINOPHILS % (AUTO) 1.4 % (0.0-8.0); HEMATOCRIT 26.7 % (36-48); LYMPHOCYTES % (AUTO) 18.3 % (21.0-51.0); MEAN CORPUSCULAR HEMOGLOBIN 25.6 pg (27.0-33.0); MEAN CORPUSCULAR HGB CONC 31.1 g/dL (32.0-36.0); MEAN CORPUSCULAR VOLUME 82.4 fL (79-99); MONOCYTES % (AUTO) 7.6 % (3.0-13.0); NEUTROPHILS % (AUTO) 71.6 % (40.0-77.0); PLATELET COUNT (AUTO) 224 K/uL (130-400); RED BLOOD CELL COUNT(AUTO) 3.24 MIL/uL (4.00-5.50); RED CELL DISTRIBUTION WIDTH 18.2 % (11.0-15.5); WHITE BLOOD COUNT (AUTO) 7.2 K/uL (4.8-10.8)
[2020-02-19 04:11] LABS: CREATININE 2.4 mg/dL (0.5-1.5); MAGNESIUM 1.7 mg/dL (1.80-2.40); POTASSIUM 3.2 mmol/L (3.5-5.1)
[2020-02-19 04:47] VITALS: BP 147/70
[2020-02-19 08:00] VITALS: BP 151/68
[2020-02-19] MEDS: IRON SUCROSE COMPLEX 100 MG in 0.9%NACL 50ML 50 ML IV SCH (09:00)
[2020-02-19] MEDS: SODIUM BICARBONATE 650 MG TAB PO SCH ×3 (10:26→20:54)
[2020-02-19] MEDS: FUROSEMIDE 20MG VIAL IV SCH ×2 (10:27→20:52)
[2020-02-19] MEDS: AMIODARONE 200 MG TABLET PO SCH ×2 (10:27→20:52)
[2020-02-19] MEDS: DILTIAZEM 50MG VIAL IV SCH (10:27)
[2020-02-19] MEDS: POTASSIUM CHLORIDE 10% ELIXIR 20 MEQ/15 ML UDCUP PO PRN ×3 (10:29→14:30)
[2020-02-19] MEDS: PANTOPRAZOLE 40 MG TAB DR PO SCH ×2 (10:29→20:52)
[2020-02-19 11:15] VITALS: BP 140/74
[2020-02-19] MEDS: KCL 20 MEQ ERTAB PO PRN (12:18)
[2020-02-19] MEDS ORDERED: LACTULOSE 20 GM/30 ML UDCUP PO SCH ×2 (14:30→16:00)
[2020-02-19] MEDS: HYDROCODONE/ACETAMINOPHEN 10/325 MG TAB PO PRN ×2 (14:59→23:53)
[2020-02-19 20:00] VITALS: BP 122/73
[2020-02-19 23:34] VITALS: BP 135/66
[2020-02-20] VITALS (19 sets, daily range): BP systolic 101–155; BP diastolic 57–86
[2020-02-20] MEDS: MAGNESIUM 2GM PREMIX 50ML 50 ML IV SCH (02:07)
[2020-02-20 04:00] LABS: HEMATOCRIT 26.9 % (36-48); MEAN CORPUSCULAR HEMOGLOBIN 25.4 pg (27.0-33.0); MEAN CORPUSCULAR HGB CONC 30.9 g/dL (32.0-36.0); MEAN CORPUSCULAR VOLUME 82.3 fL (79-99); PLATELET COUNT (AUTO) 236 K/uL (130-400); RED BLOOD CELL COUNT(AUTO) 3.27 MIL/uL (4.00-5.50); RED CELL DISTRIBUTION WIDTH 17.5 % (11.0-15.5); WHITE BLOOD COUNT (AUTO) 7.2 K/uL (4.8-10.8)
[2020-02-20 04:15] LABS: CREATININE 2.3 mg/dL (0.5-1.5); PHOSPHORUS 2.3 mg/dL (2.5-4.9); POTASSIUM 3.7 mmol/L (3.5-5.1)
[2020-02-20 04:38] LABS: EOSINOPHILS % (MANUAL) 2 % (1-6); LYMPHOCYTES % (MANUAL) 13 % (22-44); MAN.DIFF COMMENT-IMPRESSION MANUAL DIFFERENTIAL; MONOCYTES % (MANUAL) 3 % (2-9); SEGMENTED NEUTROPHILS % 82 % (40-70)
[2020-02-20 04:39] LABS: PLATELET MORPHOLOGY COMMENT ADEQUATE
[2020-02-20] MEDS: DILTIAZEM 50MG VIAL IV SCH (08:00)
[2020-02-20] MEDS: IRON SUCROSE COMPLEX 100 MG in 0.9%NACL 50ML 50 ML IV SCH (08:58)
[2020-02-20] MEDS: FUROSEMIDE 20MG VIAL IV SCH ×2 (08:58→23:31)
[2020-02-20] MEDS: SODIUM BICARBONATE 650 MG TAB PO SCH ×3 (09:00→23:30)
[2020-02-20] MEDS: PANTOPRAZOLE 40 MG TAB DR PO SCH ×2 (09:00→23:30)
[2020-02-20] MEDS: [UNRECOGNIZED DRUG - OTHER] IV SCH (13:00)
[2020-02-20] MEDS: DAPTOMYCIN IV SCH (13:00)
[2020-02-20] MEDS ORDERED: PROPOFOL 10 MG/ML 20ML VIAL IV ONE (14:11)
[2020-02-20] MEDS: AMIODARONE 200 MG TABLET PO SCH ×2 (15:30→23:38)
[2020-02-20] MEDS: LACTULOSE 20 GM/30 ML UDCUP PO SCH ×3 (15:32→23:31)
[2020-02-20] MEDS: HYDROCODONE/ACETAMINOPHEN 10/325 MG TAB PO PRN ×2 (15:33→23:30)
[2020-02-20] MEDS ORDERED: LACTULOSE 20 GM/30 ML UDCUP ONE (23:23)
[2020-02-21 00:34] VITALS: BP 150/86
[2020-02-21 04:00] VITALS: BP 127/77
[2020-02-21 04:14] LABS: HEMATOCRIT 29.8 % (36-48); MEAN CORPUSCULAR HEMOGLOBIN 25.3 pg (27.0-33.0); MEAN CORPUSCULAR HGB CONC 31.2 g/dL (32.0-36.0); MEAN CORPUSCULAR VOLUME 81.2 fL (79-99); RED BLOOD CELL COUNT(AUTO) 3.67 MIL/uL (4.00-5.50); RED CELL DISTRIBUTION WIDTH 17.1 % (11.0-15.5); WHITE BLOOD COUNT (AUTO) 7.9 K/uL (4.8-10.8)
[2020-02-21 04:25] LABS: CREATININE 2.2 mg/dL (0.5-1.5); MAGNESIUM 1.8 mg/dL (1.80-2.40); POTASSIUM 3.3 mmol/L (3.5-5.1)
[2020-02-21] MEDS: DILTIAZEM 50MG VIAL IV SCH (08:00)
[2020-02-21] MEDS: PANTOPRAZOLE 40 MG TAB DR PO SCH ×2 (08:30→20:46)
[2020-02-21] MEDS: IRON SUCROSE COMPLEX 100 MG in 0.9%NACL 50ML 50 ML IV SCH (08:30)
[2020-02-21] MEDS: AMIODARONE 200 MG TABLET PO SCH ×2 (08:30→20:46)
[2020-02-21] MEDS: FUROSEMIDE 20MG VIAL IV SCH ×2 (08:30→20:46)
[2020-02-21] MEDS: LACTULOSE 20 GM/30 ML UDCUP PO SCH ×4 (08:30→13:50)
[2020-02-21] MEDS: SODIUM BICARBONATE 650 MG TAB PO SCH ×3 (08:31→22:01)
[2020-02-21 08:38] VITALS: BP 136/94
[2020-02-21] MEDS: POTASSIUM CHLORIDE 10% ELIXIR 20 MEQ/15 ML UDCUP PO PRN (08:41)
[2020-02-21] MEDS: HYDROCODONE/ACETAMINOPHEN 10/325 MG TAB PO PRN ×2 (08:42→20:47)
[2020-02-21] MEDS: MAGNESIUM 2GM PREMIX 50ML 50 ML IV SCH (08:49)
[2020-02-21 11:36] VITALS: BP 146/86
[2020-02-21] MEDS ORDERED: PEG 3350/NA SULF,BICARB,CL/KCL 4000 ML SOLN PO SCH (15:00)
[2020-02-21] MEDS: ONDANSETRON 4MG INJ IVP PRN (15:49)
[2020-02-21 16:04] VITALS: BP 152/89
[2020-02-21 20:00] VITALS: BP 149/77
[2020-02-22] VITALS (13 sets, daily range): BP systolic 101–143; BP diastolic 52–75
[2020-02-22] MEDS: HYDROMORPHONE 1 MG INJ IVP PRN ×4 (01:16→18:45)
[2020-02-22 04:49] LABS: HEMATOCRIT 30.6 % (36-48); MEAN CORPUSCULAR HEMOGLOBIN 24.7 pg (27.0-33.0); MEAN CORPUSCULAR HGB CONC 30.4 g/dL (32.0-36.0); MEAN CORPUSCULAR VOLUME 81.4 fL (79-99); RED BLOOD CELL COUNT(AUTO) 3.76 MIL/uL (4.00-5.50); RED CELL DISTRIBUTION WIDTH 17.5 % (11.0-15.5); WHITE BLOOD COUNT (AUTO) 10.4 K/uL (4.8-10.8)
[2020-02-22 05:05] LABS: CREATININE 2.3 mg/dL (0.5-1.5); POTASSIUM 3.1 mmol/L (3.5-5.1)
[2020-02-22] MEDS: DILTIAZEM 50MG VIAL IV SCH (08:00)
[2020-02-22] MEDS: FUROSEMIDE 20MG VIAL IV SCH ×2 (08:15→21:22)
[2020-02-22] MEDS: SODIUM BICARBONATE 650 MG TAB PO SCH ×3 (09:00→21:22)
[2020-02-22] MEDS: PANTOPRAZOLE 40 MG TAB DR PO SCH ×2 (09:00→21:22)
[2020-02-22] MEDS ORDERED: FENTANYL CITRATE PF 50 MCG/1 ML 2ML VIAL ONE (11:55)
[2020-02-22] MEDS ORDERED: MIDAZOLAM HCL 1 MG/ML 2ML VIAL ONE (11:55)
[2020-02-22] MEDS ORDERED: PROPOFOL 10 MG/ML 20ML VIAL IV ONE ×2 (11:58)
[2020-02-22] MEDS ORDERED: GLYCOPYRROLATE 1 MG/5 ML SYRINGE ONE (12:00)
[2020-02-22] MEDS: POTASSIUM CHLORIDE 20MEQ/100ML 100 ML IV PRN (12:12)
[2020-02-22] MEDS ORDERED: EPHEDRINE SULFATE 50 MG/ML AMPULE ONE (12:21)
[2020-02-22] MEDS: AMIODARONE 200 MG TABLET PO SCH ×2 (14:04→21:22)
[2020-02-22] MEDS: IRON SUCROSE COMPLEX 100 MG in 0.9%NACL 50ML 50 ML IV SCH (14:04)
[2020-02-22] MEDS: DAPTOMYCIN IV SCH (18:47)
[2020-02-22] MEDS: [UNRECOGNIZED DRUG - OTHER] IV SCH (18:47)
[2020-02-22] MEDS: KCL 20 MEQ ERTAB PO PRN (19:27)
[2020-02-22] MEDS: HYDROCODONE/ACETAMINOPHEN 10/325 MG TAB PO PRN (21:21)
[2020-02-23] VITALS: BP 132/65
[2020-02-23] MEDS: HYDROMORPHONE 1 MG INJ IVP PRN ×4 (00:29→15:07)
[2020-02-23 04:00] VITALS: BP 131/66
[2020-02-23] MEDS: KCL 20 MEQ ERTAB PO PRN ×2 (04:55→07:27)
[2020-02-23 07:55] VITALS: BP 144/75
[2020-02-23] MEDS: DILTIAZEM 50MG VIAL IV SCH (08:00)
[2020-02-23] MEDS: FUROSEMIDE 20MG VIAL IV SCH ×2 (08:33→20:17)
[2020-02-23] MEDS: AMIODARONE 200 MG TABLET PO SCH ×2 (08:34→20:18)
[2020-02-23] MEDS: SODIUM BICARBONATE 650 MG TAB PO SCH ×3 (08:34→20:18)
[2020-02-23] MEDS: PANTOPRAZOLE 40 MG TAB DR PO SCH ×2 (08:34→20:18)
[2020-02-23] MEDS: IRON SUCROSE COMPLEX 100 MG in 0.9%NACL 50ML 50 ML IV SCH (09:38)
[2020-02-23] MEDS ORDERED: HYDROMORPHONE 2 MG VIAL (2MG/ML) IVP SCH (10:45)
[2020-02-23 12:00] VITALS: BP 137/79
[2020-02-23] MEDS: HYDROCODONE/ACETAMINOPHEN 10/325 MG TAB PO PRN ×2 (12:39→20:18)
[2020-02-23 15:58] VITALS: BP 126/78
[2020-02-23 20:00] VITALS: BP 144/86
[2020-02-23] MEDS ORDERED: GLUCAGON 1MG KIT 1 MG ML IM PRN (22:30)
[2020-02-23] MEDS ORDERED: DEXTROSE 50%-WATER 50 ML DISP.SYRIN IV PRN (22:30)
[2020-02-24] VITALS: BP 156/92
[2020-02-24] MEDS ORDERED: INSULIN HUMULIN R 100 UNIT/ML 3ML SQ SCH (07:30)
[2020-02-26] MEDS ORDERED: AMIODARONE 200 MG TABLET PO SCH (09:00)
== END 2020-02-24 01:00 | DRG 856 ==
LOC: EDH 10:49 → EDHIP 13:49 → 3CH 17:42 → 2DH 02-11 12:58 → 4DH 02-15 18:52
PROVIDERS: ADMIT Internal Medicine Infectious Disease; ATTEND Internal Medicine Infectious Disease
PROC: 009U0ZZ Drainage of Spinal Canal, Open Approach (ICD-10-PCS; principal; 2020-02-02 12:27)
PROC: 30233N1 Transfusion of Nonautologous Red Blood Cells into Peripheral Vein, Percutaneous Approach (ICD-10-PCS; 2020-02-03)
PROC: 02HV33Z Insertion of Infusion Device into Superior Vena Cava, Percutaneous Approach (ICD-10-PCS; 2020-02-11)
PROC: B548ZZA Ultrasonography of Superior Vena Cava, Guidance (ICD-10-PCS; 2020-02-11)
PROC: 06H03DZ Insertion of Intraluminal Device into Inferior Vena Cava, Percutaneous Approach (ICD-10-PCS; 2020-02-16)
PROC: B519YZZ Fluoroscopy of Inferior Vena Cava using Other Contrast (ICD-10-PCS; 2020-02-16)
PROC: 0DB38ZX Excision of Lower Esophagus, Via Natural or Artificial Opening Endoscopic, Diagnostic (ICD-10-PCS; 2020-02-16)
PROC: 0DB68ZX Excision of Stomach, Via Natural or Artificial Opening Endoscopic, Diagnostic (ICD-10-PCS; 2020-02-16)
PROC: 0DJD8ZZ Inspection of Lower Intestinal Tract, Via Natural or Artificial Opening Endoscopic (ICD-10-PCS; 2020-02-20)
PROC: 0DBM8ZX Excision of Descending Colon, Via Natural or Artificial Opening Endoscopic, Diagnostic (ICD-10-PCS; 2020-02-22)
PROC: 0DBN8ZX Excision of Sigmoid Colon, Via Natural or Artificial Opening Endoscopic, Diagnostic (ICD-10-PCS; 2020-02-22)
PROC: 0DBP8ZX Excision of Rectum, Via Natural or Artificial Opening Endoscopic, Diagnostic (ICD-10-PCS; 2020-02-22)
DX: T81.43XA Infection following a procedure, organ and space surgical site, initial encounter (principal); A41.02 Sepsis due to Methicillin resistant Staphylococcus aureus; G06.1 Intraspinal abscess and granuloma; R65.21 Severe sepsis with septic shock; K28.4 Chronic or unspecified gastrojejunal ulcer with hemorrhage; M46.26 Osteomyelitis of vertebra, lumbar region; G93.40 Encephalopathy, unspecified; T81.32XA Disruption of internal operation (surgical) wound, not elsewhere classified, initial encounter; N17.9 Acute kidney failure, unspecified; I13.0 Hypertensive heart and chronic kidney disease with heart failure and stage 1 through stage 4 chronic kidney disease, or unspecified chronic kidney disease; I50.32 Chronic diastolic (congestive) heart failure; E44.0 Moderate protein-calorie malnutrition; E87.2 Acidosis; B37.81 Candidal esophagitis; I82.432 Acute embolism and thrombosis of left popliteal vein; M46.46 Discitis, unspecified, lumbar region; Z20.822 Contact with and (suspected) exposure to COVID-19; N18.9 Chronic kidney disease, unspecified; E11.22 Type 2 diabetes mellitus with diabetic chronic kidney disease; E66.9 Obesity, unspecified; E11.69 Type 2 diabetes mellitus with other specified complication; D50.0 Iron deficiency anemia secondary to blood loss (chronic); E78.00 Pure hypercholesterolemia, unspecified; E78.5 Hyperlipidemia, unspecified; I48.0 Paroxysmal atrial fibrillation; Z96.651 Presence of right artificial knee joint; Y83.8 Other surgical procedures as the cause of abnormal reaction of the patient, or of later complication, without mention of misadventure at the time of the procedure; G89.29 Other chronic pain; K22.2 Esophageal obstruction; J45.909 Unspecified asthma, uncomplicated; I95.89 Other hypotension; R91.8 Other nonspecific abnormal finding of lung field; K21.00 Gastro-esophageal reflux disease with esophagitis, without bleeding; K26.9 Duodenal ulcer, unspecified as acute or chronic, without hemorrhage or perforation; R53.81 Other malaise; K62.89 Other specified diseases of anus and rectum; K63.89 Other specified diseases of intestine; K29.00 Acute gastritis without bleeding; K64.0 First degree hemorrhoids; Z68.22 Body mass index [BMI] 22.0-22.9, adult; Z98.1 Arthrodesis status; Z95.828 Presence of other vascular implants and grafts; Z87.891 Personal history of nicotine dependence; Z86.14 Personal history of Methicillin resistant Staphylococcus aureus infection; Z74.01 Bed confinement status; Y92.89 Other specified places as the place of occurrence of the external cause; Z87.440 Personal history of urinary (tract) infections; Z86.718 Personal history of other venous thrombosis and embolism
CPT/HCPCS: 36415; 36430; 36600; 37191; 43239; 45378; 45380; 71045; 72131; 72158; 78582; 80048; 80053; 80170; 80202; 82270; 82435; 82607; 82728; 82803; 82947; 82948; 83605; 83735; 83880; 84100; 84132; 84295; 85014; 85018; 85025; 85027; 85378; 85610; 85651; 85730; 86140; 86677; 86850; 86900; 86901; 86923; 87040; 87070; 87076; 87077; 87186; 87205; 87426; 88305; 88342; 93005; 93306; 93356; 93970; 93971; A4606; A9540; A9558; A9579; C1751; C1769; C1894; C9113; G0378; J0282; J0690; J0692; J0878; J1170; J1450; J1580; J1644; J1650; J1756; J1885; J1940; J2001; J2250; J2270; J2405; J2543; J2704; J2710; J2765; J3010; J3370; J3475; J3480; J3490; J7030; J7050; J7060; J7120; P9016; Q9967; U0003

== ENCOUNTER → 2021-02-01 | Outpatient (CLI) | payer OTHER, MEDICARE ==
[~2021-02-01] MED LIST changes: +LIDOCAINE HCL 4% LTA SOL 4 ML VIAL TP ONE
== END | disposition home or self-care (01) ==
LOC: WHH 09:47
PROVIDERS: ATTEND Podiatrist Foot & Ankle Surgery
DX: E11.621 Type 2 diabetes mellitus with foot ulcer (principal); L97.312 Non-pressure chronic ulcer of right ankle with fat layer exposed; E78.5 Hyperlipidemia, unspecified; I10 Essential (primary) hypertension; J44.9 Chronic obstructive pulmonary disease, unspecified; K21.9 Gastro-esophageal reflux disease without esophagitis; G89.29 Other chronic pain; M54.9 Dorsalgia, unspecified; M19.90 Unspecified osteoarthritis, unspecified site; M79.7 Fibromyalgia; Z79.899 Other long term (current) drug therapy; Z96.651 Presence of right artificial knee joint; Z98.890 Other specified postprocedural states
CPT/HCPCS: A4450; A6209; G0463